=== PATIENT | female | born 1955 | race African-American/Black ===

== ENCOUNTER 2016-11-12 08:07 | Outpatient (CLI) | payer OTHER ==
[2016-11-12 08:27] LABS: ALT (SGPT) 21 U/L (8-55); AST (SGOT) 28 U/L (5-34); Albumin 4.1 g/dL (3.5-5.0); Alkaline Phosphatase 83 U/L (40-150); Anion Gap 18 mmol/L (10-20); BUN (Urea Nitrogen) 15 mg/dL (9.8-20.1); Bilirubin, Total 0.8 mg/dL (0.2-1.2); Calc. Creatinine Clearance 0 mL/min (70-130); Calcium 9.6 mg/dL (7.8-10.44); Carbon Dioxide 28 mmol/L (22-29); Cardiac Risk 2.4 (Less than 4.5); Chloride 96 mmol/L (98-107); Cholesterol 137 mg/dl (< 200 Desired); Estimated GFR-MDRD 72; Globulin 3.7 g/dL (2.4-3.5); HDL Cholesterol 57 mg/dL (>60 Neg Risk); LDL Cholesterol, Calculated 55 mg/dL; Potassium 3.6 mmol/L (3.5-5.1); Protein, Total 7.8 g/dL (6.0-8.3); Sodium 138 mmol/L (136-145); Triglycerides 126 mg/dL (Less than 150)
[2016-11-12 08:29] LABS: Glucose 228 mg/dL (70-105)
[2016-11-12 08:30] LABS: Hemoglobin A1c 10.5 % (4.0-6.0)
[2016-11-12 08:31] LABS: Thyroid Stimulating Hormone 2.0628 uIU/mL (0.35-4.94); Vitamin D, 25 Hydroxy 9.9 ng/ml (> 30.0)
[2016-11-12 08:34] LABS: White Blood Cell (WBC) Count 6.6 thou/uL (4.8-10.8)
[2016-11-12 08:35] LABS: Hemoglobin 13.9 g/dL (12.0-16.0)
[2016-11-12 08:36] LABS: #Eosinphils 0.4 thou/uL (0.0-0.7); #Lymphocytes 2.5 thou/uL (1.20-3.40); #Monocytes 0.2 thou/uL (0.11-0.59); #Neutrophils 3.4 thou/uL (1.40-6.50); %Basophils 1.2 % (0.0-1.0); %Eosinophils 5.8 % (0.0-10.0); %Lymphocytes 37.7 % (21.0-51.0); %Monocytes 3.8 % (0.0-10.0); %Neutrophils 54.5 % (42.0-75.0); Mean Corpuscular HGB CONC 31.8 g/dL (32.0-36.0); Mean Corpuscular Hemoglobin 25.3 pg (27.0-31.0); Mean Corpuscular Volume 79.5 fL (81.0-99.0); Mean Platelet Volume 7.5 fL (7.4-10.4); Platelet Count 293 thou/uL (130-400); RBC Distribution Width 13.5 % (11.5-14.5)
[2016-11-12 08:37] LABS: #Basophils 0.1 thou/uL (0.0-0.2)
[2016-11-12 08:52] LABS: Blood, Urine Negative (Negative); Clarity Clear (Clear); Glucose, Urine (Dipstick) Negative (Negative); Leukocyte Negative (Negative); Nitrite Negative (Negative); Protein, Urine (Dipstick) 100 mg/dL (Neg-Trace); Urobilinogen 0.2 mg/dL (0.2-1.0)
[2016-11-12 08:58] LABS: Bilirubin Negative (Negative)
[2016-11-12 09:00] LABS: Icto Negative (Negative)
[2016-11-12 09:15] LABS: Bacteria/HPF Rare-Few HPF (None Seen); RBC/HPF 0-3 HPF (0-3); Squamous Epithelial 0-3 HPF (0-3); WBC/HPF 0-3 HPF (0-3)
[2016-11-12 18:30] LABS: Creatinine, Urine 180.36 mg/dL (47-110); Microalbumin Urine 10.6 mg/dL (0.5-50.0); Microalbumin/Creat Ratio 58.8 mg/g (Less than 30)
== END 2016-11-12 08:08 | disposition home or self-care (01) ==
LOC: NAV LAB 08:07
DX: Z13.220 Encounter for screening for lipoid disorders (principal); E11.65 Type 2 diabetes mellitus with hyperglycemia; Z01.419 Encounter for gynecological examination (general) (routine) without abnormal findings; Z13.29 Encounter for screening for other suspected endocrine disorder
CPT/HCPCS: 36415; 80053; 80061; 81003; 81015; 82043; 82306; 83036; 84443; 85025

== ENCOUNTER 2017-09-08 21:19 | Emergency (ER) | payer OTHER ==
[2017-09-08] MEDS ORDERED: Sodium Chloride 0.9% 1,000 ML ONE ×2 (21:52→22:13)
[2017-09-08] MEDS ORDERED: Insulin Regular 300 UNITS/3 ML VIAL ONE (21:52)
[2017-09-08 21:58] LABS: #Basophils 0.1 thou/uL (0.0-0.2); #Eosinphils 0.3 thou/uL (0.0-0.7); #Lymphocytes 2.3 thou/uL (1.20-3.40); #Monocytes 0.4 thou/uL (0.11-0.59); #Neutrophils 2.5 thou/uL (1.40-6.50); %Eosinophils 5.4 % (0.0-10.0); %Lymphocytes 41.4 % (21.0-51.0); %Monocytes 6.9 % (0.0-10.0); %Neutrophils 45.3 % (42.0-75.0); Bilirubin Negative (Negative); Blood, Urine Trace (Negative); Clarity Clear (Clear); Glucose, Urine (Dipstick) 500 mg/dL (Negative); Hemoglobin 12.5 g/dL (12.0-16.0); Leukocyte Negative (Negative); Mean Corpuscular HGB CONC 30.1 g/dL (32.0-36.0); Mean Corpuscular Hemoglobin 24.1 pg (27.0-31.0); Mean Corpuscular Volume 79.8 fl (81.0-99.0); Mean Platelet Volume 8.9 fL (7.4-10.4); Nitrite Negative (Negative); Platelet Count 245 thou/uL (130-400); Protein, Urine (Dipstick) Negative (Neg-Trace); RBC Distribution Width 13.8 % (11.5-14.5); Urobilinogen 0.2 mg/dL (0.2-1.0); White Blood Cell (WBC) Count 5.5 thou/uL (4.8-10.8)
[2017-09-08 21:59] LABS: ALT (SGPT) 21 U/L (8-55); AST (SGOT) 19 U/L (5-34); Albumin 3.8 g/dL (3.5-5.0); Alkaline Phosphatase 109 U/L (40-150); Anion Gap 21 mmol/L (10-20); BUN (Urea Nitrogen) 28 mg/dL (9.8-20.1); Bilirubin, Total 0.4 mg/dL (0.2-1.2); Calc. Creatinine Clearance 0 mL/min (70-130); Calcium 8.9 mg/dL (7.8-10.44); Carbon Dioxide 21 mmol/L (22-29); Chloride 92 mmol/L (98-107); Estimated GFR-MDRD 29; Globulin 3.9 g/dL (2.4-3.5); Potassium 4.1 mmol/L (3.5-5.1); Protein, Total 7.7 g/dL (6.0-8.3); Sodium 130 mmol/L (136-145)
[2017-09-08 22:02] LABS: CKMB 1.3 ng/mL (0-6.6); Troponin I Less than 0.010 ng/mL (< 0.028)
[2017-09-08 22:05] LABS: Specific Gravity, Urine 1.023 (1.002-1.036)
[2017-09-08 22:08] LABS: Bacteria/HPF None Seen HPF (None Seen); RBC/HPF 0-3 HPF (0-3); Squamous Epithelial 0-3 HPF (0-3); WBC/HPF 0-3 HPF (0-3)
[2017-09-08 22:19] LABS: PLT Morphology Comment Appears Adequate; RBC Morphology Normal
[2017-09-08 22:25] LABS: Glucose 772 mg/dL (70-105)
[2017-09-08 23:28] LABS: Anion Gap 16 mmol/L (10-20); BUN (Urea Nitrogen) 27 mg/dL (9.8-20.1); Calc. Creatinine Clearance 0 mL/min (70-130); Calcium 8.8 mg/dL (7.8-10.44); Carbon Dioxide 27 mmol/L (22-29); Chloride 95 mmol/L (98-107); Estimated GFR-MDRD 30; Potassium 4.3 mmol/L (3.5-5.1); Sodium 134 mmol/L (136-145)
[2017-09-08 23:29] LABS: Glucose 733 mg/dL (70-105)
== END 2017-09-09 00:25 | disposition home or self-care (01) ==
LOC: NAV ERS 21:19
DX: E11.65 Type 2 diabetes mellitus with hyperglycemia (principal); N28.9 Disorder of kidney and ureter, unspecified; E11.9 Type 2 diabetes mellitus without complications; E78.5 Hyperlipidemia, unspecified; I10 Essential (primary) hypertension; Z79.899 Other long term (current) drug therapy
CPT/HCPCS: 36416; 80053; 81003; 81015; 82010; 82553; 84484; 85025; 93005; 96361; 96374; 96376; J1815; J7050

== ENCOUNTER 2018-06-05 12:42 | Emergency (ER) | payer OTHER ==
[2018-06-05] MEDS ORDERED: Sodium Chloride 0.9% 1,000 ML ONE (13:03)
[2018-06-05 13:09] LABS: #Basophils 0.1 thou/uL (0.0-0.2); #Eosinphils 0.3 thou/uL (0.0-0.7); #Lymphocytes 2.9 thou/uL (1.20-3.40); #Monocytes 0.5 thou/uL (0.11-0.59); #Neutrophils 2.8 thou/uL (1.40-6.50); %Eosinophils 4.3 % (0.0-10.0); %Lymphocytes 44.2 % (21.0-51.0); %Neutrophils 43.6 % (42.0-75.0); Hemoglobin 13.7 g/dL (12.0-16.0); Mean Corpuscular HGB CONC 32.3 g/dL (32.0-36.0); Mean Corpuscular Hemoglobin 25.5 pg (27.0-31.0); Mean Corpuscular Volume 78.9 fL (78.0-98.0); Mean Platelet Volume 7.8 fL (7.4-10.4); Platelet Count 300 thou/uL (130-400); RBC Distribution Width 13.2 % (11.5-14.5); Red Blood Cell (RBC) Count 5.37 mill/uL (4.20-5.40); White Blood Cell (WBC) Count 6.5 thou/uL (4.8-10.8)
[2018-06-05 13:20] LABS: Anion Gap 16 mmol/L (10-20); BUN (Urea Nitrogen) 32 mg/dL (9.8-20.1); Calc. Creatinine Clearance 0 mL/min (70-130); Calcium 10.1 mg/dL (7.8-10.44); Carbon Dioxide 24 mmol/L (23-31); Chloride 98 mmol/L (98-107); Estimated GFR-MDRD 37; Glucose 324 mg/dL (80-115); Potassium 3.9 mmol/L (3.5-5.1); Sodium 134 mmol/L (136-145)
== END 2018-06-05 13:52 | disposition short-term general hospital (02) ==
LOC: NAV ERS 12:42
DX: K22.2 Esophageal obstruction (principal); E11.65 Type 2 diabetes mellitus with hyperglycemia; I10 Essential (primary) hypertension; M19.90 Unspecified osteoarthritis, unspecified site; Z79.899 Other long term (current) drug therapy; Z79.51 Long term (current) use of inhaled steroids
CPT/HCPCS: 36415; 36416; 80048; 85025; 96361; 96374; J1610; J7050

== ENCOUNTER 2019-07-31 11:42 | Emergency (ER) | payer OTHER ==
--- NOTE | 2019-07-31 12:41 | RAD ---
LEFT KNEE FOUR VIEWS: 07/31/2019 HISTORY: Fall. Twisting injury. COMPARISON: None. FINDINGS: There is moderate/severe medial and lateral compartment narrowing with subchondral sclerosis and oste ophyte formation. There is a small knee joint effusion. There is moderate-severe patellofemoral joint space narrowing, subchondral sclerosis and osteophyte formation. No displaced fracture or dislocatio n. IMPRESSION: 1. Severe multicompartment degenerative joint disease. 2. Small knee joint effusion. 3. No acute fracture or evidence of dislocation is appreciated. POS: [facility]
== END 2019-07-31 12:42 | disposition home or self-care (01) ==
LOC: NAV ERS 11:42
DX: M25.562 Pain in left knee (principal); E11.9 Type 2 diabetes mellitus without complications; I10 Essential (primary) hypertension; Z79.899 Other long term (current) drug therapy

== ENCOUNTER 2020-01-04 09:24 | Outpatient (CLI) | payer OTHER ==
[2020-01-04 09:31] LABS: #Basophils 0.1 thou/uL (0.0-0.2); #Eosinphils 0.3 thou/uL (0.0-0.7); #Monocytes 0.4 thou/uL (0.11-0.59); #Neutrophils 3.4 thou/uL (1.40-6.50); %Basophils 1.1 % (0.0-1.0); %Lymphocytes 32.7 % (21.0-51.0); %Monocytes 5.8 % (0.0-10.0); %Neutrophils 55.3 % (42.0-75.0); Hemoglobin 13.3 g/dL (12.0-16.0); Mean Corpuscular HGB CONC 30.2 g/dL (32.0-36.0); Mean Corpuscular Hemoglobin 25.1 pg (27.0-31.0); Mean Corpuscular Volume 83.1 fL (78.0-98.0); Mean Platelet Volume 8.4 fL (7.4-10.4); Platelet Count 299 thou/uL (130-400); RBC Distribution Width 14.1 % (11.5-14.5); Red Blood Cell (RBC) Count 5.29 mill/uL (4.20-5.40); White Blood Cell (WBC) Count 6.1 thou/uL (4.8-10.8)
[2020-01-04 09:47] LABS: ALT (SGPT) 12 U/L (8-55); AST (SGOT) 16 U/L (5-34); Albumin 3.3 g/dL (3.4-4.8); Alkaline Phosphatase 72 U/L (40-110); Anion Gap 18 mmol/L (10-20); BUN (Urea Nitrogen) 25 mg/dL (9.8-20.1); Bilirubin, Total 0.4 mg/dL (0.2-1.2); Calc. Creatinine Clearance 0 mL/min (70-130); Calcium 8.9 mg/dL (7.8-10.44); Carbon Dioxide 17 mmol/L (23-31); Cardiac Risk 3.7 (Less than 4.5); Chloride 109 mmol/L (98-107); Cholesterol 194 mg/dl (< 200 Desired); Estimated GFR-MDRD 38; Globulin 3.3 g/dL (2.4-3.5); Glucose 167 mg/dL (80-115); HDL Cholesterol 53 mg/dL (>60 Neg Risk); LDL Cholesterol, Calculated 114 mg/dL; Potassium 3.8 mmol/L (3.5-5.1); Protein, Total 6.6 g/dL (6.0-8.3); Sodium 140 mmol/L (136-145); Triglycerides 134 mg/dL (Less than 150)
[2020-01-04 11:36] LABS: Hemoglobin A1c 6.7 % (4.0-6.0)
[2020-01-04 12:03] LABS: Creatinine, Urine 148.44 mg/dL (47-110); Microalbumin Urine 3.9 mg/dL (0.5-50.0); Microalbumin/Creat Ratio 26.3 mg/g (Less than 30)
== END 2020-01-04 09:25 | disposition home or self-care (01) ==
LOC: NAV LAB 09:24
PROVIDERS: ATTEND Family Medicine
DX: Z51.81 Encounter for therapeutic drug level monitoring (principal); E11.65 Type 2 diabetes mellitus with hyperglycemia; E78.2 Mixed hyperlipidemia; J30.2 Other seasonal allergic rhinitis; E66.01 Morbid (severe) obesity due to excess calories; I12.9 Hypertensive chronic kidney disease with stage 1 through stage 4 chronic kidney disease, or unspecified chronic kidney disease; E11.22 Type 2 diabetes mellitus with diabetic chronic kidney disease; N18.3 Chronic kidney disease, stage 3 (moderate); Z79.899 Other long term (current) drug therapy
CPT/HCPCS: 80053; 80061; 82043; 83036; 84443; 85025

== ENCOUNTER 2020-04-25 15:58 | Outpatient (CLI) | payer OTHER ==
--- NOTE | 2020-04-25 16:16 | RAD ---
EXAM: Two views chest PROVIDED CLINICAL HISTORY: Cough. COMPARISON: 05/30/2019 FINDINGS: Cardiac silhouette and pulmonary vasculature are within normal limits. The lungs are clear. The osse ous structures have a normal appearance. Vascular calcifications are seen in thoracic aorta. No interval change. IMPRESSION: No acute cardiopulmonary process.
== END 2020-04-25 15:59 | disposition home or self-care (01) ==
LOC: NAV LAB 15:58
PROVIDERS: ATTEND Family Medicine
DX: R05 Cough (principal)
CPT/HCPCS: 71046

== ENCOUNTER 2020-06-30 12:25 | Outpatient (CLI) | payer OTHER ==
[2020-06-30 12:56] LABS: CRP (Inflammatory) 6.27 mg/dL (= or < 0.5); Uric Acid 9.3 mg/dL (2.6-6.0)
== END 2020-06-30 12:26 | disposition home or self-care (01) ==
LOC: NAV RAD 12:25
PROVIDERS: ATTEND Family Medicine
DX: M10.9 Gout, unspecified (principal)
CPT/HCPCS: 36415; 84550; 86140

== ENCOUNTER 2023-12-24 07:21 | Inpatient (IN) | payer BC, MEDICARE, SELFPAY ==
[2023-12-24 08:01] LABS: #Basophils 0.1 thou/uL (0.0-0.2); #Neutrophils 14.1 thou/uL (1.40-6.50); %Basophils 0.5 % (0.0-1.0); %Eosinophils 0.1 % (0.0-10.0); %Lymphocytes 6.3 % (21.0-51.0); %Neutrophils 87.2 % (42.0-75.0); Hematocrit 36.6 % (36.0-47.0); Hemoglobin 11.3 g/dL (12.0-16.0); Mean Corpuscular HGB CONC 30.8 g/dL (32.0-36.0); Mean Corpuscular Hemoglobin 23.5 pg (27.0-31.0); Mean Corpuscular Volume 76.4 fl (78.0-98.0); Mean Platelet Volume 7.4 fL (7.4-10.4); Platelet Count 244 10x3/uL (130-400); RBC Distribution Width 13.6 % (11.5-14.5); Red Blood Cell (RBC) Count 4.79 mill/uL (4.20-5.40); White Blood Cell (WBC) Count 16.2 10x3/uL (4.8-10.8)
[2023-12-24 08:08] LABS: ALT (SGPT) 9 U/L (8-55); AST (SGOT) 11 U/L (5-34); Albumin 2.9 g/dL (3.4-4.8); Alkaline Phosphatase 82 U/L (40-110); Anion Gap 18 mmol/L (10-20); BUN (Urea Nitrogen) 39 mg/dL (9.8-20.1); Bilirubin, Total 0.9 mg/dL (0.2-1.2); Calc. Creatinine Clearance 0 mL/min (70-130); Calcium 9.6 mg/dL (7.8-10.44); Carbon Dioxide 20 mmol/L (23-31); Chloride 97 mmol/L (98-107); Estimated GFR 23; Globulin 5.1 g/dL (2.4-3.5); Glucose 393 mg/dL (80-115); Potassium 4.9 mmol/L (3.5-5.1); Sodium 130 mmol/L (136-145)
[2023-12-24 08:32] LABS: Bilirubin Negative (Negative); Blood, Urine Small (Negative); Clarity Clear (Clear); Glucose, Urine (Dipstick) 250 mg/dL (Negative); Ketone, Urine Negative (Negative); Leukocyte Negative (Negative); Nitrite Negative (Negative); Protein, Urine (Dipstick) > or equal to 300 mg/dL (Neg-Trace); Urobilinogen 0.2 mg/dL (Less than 2)
[2023-12-24 08:39] LABS: Bacteria/HPF Rare-Few HPF (None Seen); CAUTI Indications for Culture Fever or rigors; RBC/HPF 0-3 HPF (0-3); Squamous Epithelial 0-3 HPF (0-3); WBC/HPF None Seen HPF (0-3)
[2023-12-24 08:40] LABS: SARS-CoV-2 NAA Rapid Test Not Detected (NotDetected)
[2023-12-24 08:41] LABS: Urine Culture Reflex No No
[2023-12-24] MEDS ORDERED: HumaLOG 300 UNITS/3 ML VIAL SC PRN ×2 (10:03)
[2023-12-24] MEDS ORDERED: Glucagon 1 MG/ML KIT IM PRN (10:03)
[2023-12-24] MEDS ORDERED: Dextrose 50% Abboject 50 ML SYRINGE SLOW IVP PRN (10:03)
[2023-12-24] MEDS ORDERED: Ondansetron ODT 4 MG TAB PO PRN (10:03)
[2023-12-24] MEDS ORDERED: Ipratropium/Albuterol 3 ML NEB NEB PRN (10:24)
[2023-12-24 11:39] VITALS: BMI 51.6
[2023-12-24] MEDS: Insulin Lispro 100 UNIT/ML 10 ML VIAL SC PRN ×2 (12:42→20:43)
[2023-12-24] MEDS: Acetaminophen 500 MG TAB ONE (13:05)
[2023-12-24] MEDS: cefTRIAXone (ROCEPHIN) 1 GM VIAL ONE (13:06)
[2023-12-24] MEDS: Sodium Chloride 0.9% 100 ML ONE (13:06)
[2023-12-24] MEDS: Sodium Chloride 0.9% 1,000 ML ONE ×2 (13:06)
[2023-12-24] MEDS: Azithromycin 500 MG VIAL ONE (13:07)
[2023-12-24] MEDS: Sodium Chloride 0.9% 250 ML 250 ML ONE (13:07)
[2023-12-24] MEDS: Sodium Chloride 0.9% 1,000 ML IV SCH ×4 (14:31→19:41)
[2023-12-24] MEDS: Ipratropium/Albuterol 3 ML NEB NEB SCH (14:33)
[2023-12-24] MEDS: Heparin 5,000 UNITS/ML VIAL SC SCH (14:34)
[2023-12-24] MEDS: Acetaminophen 325 MG TAB PO PRN (17:11)
[2023-12-24] MEDS: HumuLIN 70/30 100 Unit/ml 10 ml Vial SC SCH (19:59)
[2023-12-24] MEDS: Atorvastatin Calcium 40 MG TAB PO SCH (20:43)
[2023-12-24] MEDS: Famotidine 20 MG TAB PO SCH (20:44)
[2023-12-25 05:54] LABS: #Basophils 0.1 thou/uL (0.0-0.2); #Eosinphils 0.1 thou/uL (0.0-0.7); #Lymphocytes 1.8 thou/uL (1.20-3.40); #Monocytes 0.8 thou/uL (0.11-0.59); #Neutrophils 9.7 thou/uL (1.40-6.50); %Basophils 0.4 % (0.0-1.0); %Eosinophils 1.2 % (0.0-10.0); %Lymphocytes 14.4 % (21.0-51.0); %Monocytes 6.4 % (0.0-10.0); %Neutrophils 77.6 % (42.0-75.0); Hematocrit 29.5 % (36.0-47.0); Hemoglobin 9.1 g/dL (12.0-16.0); Mean Corpuscular Hemoglobin 23.6 pg (27.0-31.0); Mean Platelet Volume 7.2 fL (7.4-10.4); Platelet Count 211 10x3/uL (130-400); RBC Distribution Width 13.7 % (11.5-14.5); Red Blood Cell (RBC) Count 3.88 mill/uL (4.20-5.40); White Blood Cell (WBC) Count 12.5 10x3/uL (4.8-10.8)
[2023-12-25 06:03] LABS: ALT (SGPT) 8 U/L (8-55); AST (SGOT) 13 U/L (5-34); Albumin 2.3 g/dL (3.4-4.8); Alkaline Phosphatase 61 U/L (40-110); Anion Gap 13 mmol/L (10-20); BUN (Urea Nitrogen) 30 mg/dL (9.8-20.1); Bilirubin, Total 0.3 mg/dL (0.2-1.2); Calc. Creatinine Clearance 75 mL/min (70-130); Calcium 8.4 mg/dL (7.8-10.44); Carbon Dioxide 19 mmol/L (23-31); Chloride 108 mmol/L (98-107); Estimated GFR 35; Globulin 4.2 g/dL (2.4-3.5); Glucose 180 mg/dL (80-115); Potassium 4.4 mmol/L (3.5-5.1); Protein, Total 6.5 g/dL (5.8-8.1); Sodium 136 mmol/L (136-145)
[2023-12-25] MEDS: Famotidine 20 MG TAB PO SCH (08:30)
[2023-12-25] MEDS: Amlodipine 5 MG TAB PO SCH (08:31)
[2023-12-25] MEDS: Azithromycin 500 MG in Sodium Chloride 0.9% 250 ML 250 ML IVPB SCH (08:32)
[2023-12-25] MEDS ORDERED: Atenolol 25 MG TAB PO SCH (09:00)
[2023-12-25] MEDS ORDERED: ATENOLOL 50 MG PO SCH (09:00)
[2023-12-25] MEDS ORDERED: Atorvastatin Calcium 10 MG TAB PO SCH (09:00)
[2023-12-25] MEDS ORDERED: ATORVASTATIN PO SCH (09:00)
[2023-12-25] MEDS ORDERED: AMLODIPINE PO SCH (09:00)
[2023-12-25] MEDS ORDERED: [UNRECOGNIZED DRUG - OTHER] PO SCH (09:00)
[2023-12-25] MEDS: Budesonide 0.5 MG/2 ML NEB INH SCH ×3 (09:18→20:30)
[2023-12-25] MEDS: cefTRIAXone\\ROCEPHIN 1 GM in Sodium Chloride 0.9% 100 ML IVPB SCH (09:39)
[2023-12-25] MEDS: Lisinopril 10 MG TAB PO SCH (20:28)
[2023-12-26 06:10] LABS: #Basophils 0.1 thou/uL (0.0-0.2); #Eosinphils 0.2 thou/uL (0.0-0.7); #Lymphocytes 2.4 thou/uL (1.20-3.40); #Monocytes 0.7 thou/uL (0.11-0.59); #Neutrophils 6.2 thou/uL (1.40-6.50); %Basophils 0.6 % (0.0-1.0); %Eosinophils 2.4 % (0.0-10.0); %Lymphocytes 24.7 % (21.0-51.0); %Monocytes 7.5 % (0.0-10.0); %Neutrophils 64.9 % (42.0-75.0); Hematocrit 30.6 % (36.0-47.0); Hemoglobin 9.3 g/dL (12.0-16.0); Mean Corpuscular HGB CONC 30.6 g/dL (32.0-36.0); Mean Corpuscular Hemoglobin 23.4 pg (27.0-31.0); Mean Corpuscular Volume 76.4 fl (78.0-98.0); Mean Platelet Volume 7.5 fL (7.4-10.4); Platelet Count 215 10x3/uL (130-400); RBC Distribution Width 13.8 % (11.5-14.5); White Blood Cell (WBC) Count 9.5 10x3/uL (4.8-10.8)
[2023-12-26 06:21] LABS: Anion Gap 12 mmol/L (10-20); BUN (Urea Nitrogen) 19 mg/dL (9.8-20.1); Calc. Creatinine Clearance 89 mL/min (70-130); Calcium 8.5 mg/dL (7.8-10.44); Carbon Dioxide 21 mmol/L (23-31); Chloride 111 mmol/L (98-107); Estimated GFR 42; Glucose 111 mg/dL (80-115); Sodium 140 mmol/L (136-145)
[2023-12-26] MEDS: Enoxaparin 30 MG (0.3 mL) SYRINGE SC SCH (08:28)
[2023-12-26 11:33] LABS: Iron 29 ug/dL (50-170); Iron Binding Capacity, Total 269 mcg/dL (265-497)
[2023-12-26] MEDS: Ferrous Sulfate 325 MG TAB PO SCH (13:01)
[2023-12-27 05:18] LABS: #Basophils 0.1 thou/uL (0.0-0.2); #Eosinphils 0.2 thou/uL (0.0-0.7); #Lymphocytes 1.6 thou/uL (1.20-3.40); #Monocytes 0.7 thou/uL (0.11-0.59); #Neutrophils 6.3 thou/uL (1.40-6.50); %Basophils 0.9 % (0.0-1.0); %Eosinophils 2.5 % (0.0-10.0); %Lymphocytes 18.1 % (21.0-51.0); %Monocytes 8.1 % (0.0-10.0); %Neutrophils 70.4 % (42.0-75.0); Hematocrit 32.3 % (36.0-47.0); Hemoglobin 10.3 g/dL (12.0-16.0); Mean Corpuscular HGB CONC 31.9 g/dL (32.0-36.0); Mean Corpuscular Hemoglobin 24.1 pg (27.0-31.0); Mean Corpuscular Volume 75.6 fl (78.0-98.0); Mean Platelet Volume 7.6 fL (7.4-10.4); Platelet Count 247 10x3/uL (130-400); RBC Distribution Width 13.6 % (11.5-14.5); Red Blood Cell (RBC) Count 4.27 mill/uL (4.20-5.40); White Blood Cell (WBC) Count 8.9 10x3/uL (4.8-10.8)
[2023-12-27 05:33] LABS: Anion Gap 15 mmol/L (10-20); BUN (Urea Nitrogen) 15 mg/dL (9.8-20.1); Calc. Creatinine Clearance 98 mL/min (70-130); Calcium 9.2 mg/dL (7.8-10.44); Carbon Dioxide 22 mmol/L (23-31); Chloride 108 mmol/L (98-107); Estimated GFR 48; Glucose 66 mg/dL (80-115); Potassium 4.1 mmol/L (3.5-5.1); Sodium 141 mmol/L (136-145)
[2023-12-27 07:05] VITALS: BP 128/67; TEMP 98.7
[2023-12-27] MEDS: Amoxicillin/Potassium Clav 875 MG TAB PO SCH (08:21)
[2023-12-28] MEDS ORDERED: Ferrous Sulfate 325 MG TAB PO SCH (09:00)
== END 2023-12-27 10:10 | disposition home or self-care (01) | DRG 871 ==
LOC: NAV ERS 07:21 → NAV ACUTE 09:45
PROVIDERS: ADMIT Student in an Organized Health Care Education/Training Program; ATTEND Student in an Organized Health Care Education/Training Program
DX: A41.9 Sepsis, unspecified organism (principal); J18.9 Pneumonia, unspecified organism; N17.9 Acute kidney failure, unspecified; E78.5 Hyperlipidemia, unspecified; J30.2 Other seasonal allergic rhinitis; I12.9 Hypertensive chronic kidney disease with stage 1 through stage 4 chronic kidney disease, or unspecified chronic kidney disease; D50.9 Iron deficiency anemia, unspecified; E11.22 Type 2 diabetes mellitus with diabetic chronic kidney disease; N18.9 Chronic kidney disease, unspecified; M10.9 Gout, unspecified; Z79.4 Long term (current) use of insulin; Z90.710 Acquired absence of both cervix and uterus; Z98.51 Tubal ligation status
CPT/HCPCS: 36415; 36416; 71046; 80048; 80053; 81001; 82728; 83540; 83550; 83605; 84145; 85025; 87040; 93005; 94640; 96365; 96374; J0456; J0696; J1644; J1650; J1815; J7030; J7050; J7620; J7626; U0002

== ENCOUNTER 2023-12-31 05:44 | Emergency (ER) | payer MEDICARE | END 2023-12-31 07:15 | disposition home or self-care (01) | LOC: NAV ERS 05:44 | DX: R04.2 Hemoptysis (principal); M10.9 Gout, unspecified | CPT/HCPCS: 71046 ==

== ENCOUNTER 2024-04-27 16:29 | Emergency (ER) | payer MEDICARE, SELFPAY ==
[2024-04-27 17:22] LABS: Hematocrit 37.7 % (36.0-47.0); Hemoglobin 11.6 g/dL (12.0-16.0); Mean Corpuscular HGB CONC 30.8 g/dL (32.0-36.0); Mean Corpuscular Hemoglobin 23.3 pg (27.0-31.0); Mean Corpuscular Volume 75.8 fl (78.0-98.0); Mean Platelet Volume 8.7 fL (7.4-10.4); Platelet Count 357 10x3/uL (130-400); RBC Distribution Width 13.3 % (11.5-14.5); Red Blood Cell (RBC) Count 4.97 mill/uL (4.20-5.40); White Blood Cell (WBC) Count 14.5 10x3/uL (4.8-10.8)
[2024-04-27] MEDS ORDERED: Ipratropium/Albuterol 3 ML NEB ONE (17:23)
[2024-04-27] MEDS ORDERED: Acetaminophen 500 MG TAB ONE (17:23)
[2024-04-27 17:33] LABS: ALT (SGPT) 9 U/L (8-55); AST (SGOT) 9 U/L (5-34); Albumin 2.9 g/dL (3.4-4.8); Alkaline Phosphatase 85 U/L (40-110); Anion Gap 19 mmol/L (10-20); BUN (Urea Nitrogen) 36 mg/dL (9.8-20.1); Bilirubin, Total 0.6 mg/dL (0.2-1.2); Calc. Creatinine Clearance 0 mL/min (70-130); Carbon Dioxide 19 mmol/L (23-31); Chloride 102 mmol/L (98-107); Estimated GFR 25; Globulin 4.6 g/dL (2.4-3.5); Glucose 280 mg/dL (80-115); Potassium 5.3 mmol/L (3.5-5.1); Protein, Total 7.5 g/dL (5.8-8.1); Sodium 135 mmol/L (136-145)
[2024-04-27] MEDS ORDERED: Sodium Chloride 0.9% 1,000 ML ONE ×2 (17:36→18:41)
[2024-04-27 17:39] LABS: Troponin I 0.012 ng/mL (< 0.028)
[2024-04-27 18:14] LABS: MDiff Complete? YES
[2024-04-27 18:18] LABS: Band 2 % (5-11); Eosinophils 1 % (0-10); Lymphocytes 9 % (21-51); Monocytes 6 % (0-10); Myelocyte 1 % (0-0); Neutrophil 81 % (42-75)
[2024-04-27] MEDS ORDERED: cefTRIAXone (ROCEPHIN) 2 GM VIAL ONE (18:18)
[2024-04-27] MEDS ORDERED: Sodium Chloride 0.9% 100 ML ONE (18:18)
[2024-04-27 18:19] LABS: Anisocytosis SLIGHT = 6-15 cells (100X) (0-5/hpf); Hypochromia SLIGHT = 6-15 cells (100X) (0-5/hpf); Poikilocytosis SLIGHT = 6-15 cells (100X) (0-5/hpf); Toxic Granulation MODERATE
[2024-04-27 18:22] LABS: Platelet Adequacy Comment Appears Adequate
[2024-04-27] MEDS ORDERED: Ondansetron PF 4 MG/2 ML Vial ONE (18:41)
[2024-04-27 18:46] LABS: Bilirubin Negative (Negative); Blood, Urine Negative (Negative); Clarity Clear (Clear); Glucose, Urine (Dipstick) Negative (Negative); Ketone, Urine Trace mg/dL (Negative); Leukocyte Negative (Negative); Nitrite Negative (Negative); Protein, Urine (Dipstick) > or equal to 300 mg/dL (Neg-Trace); Urobilinogen 0.2 mg/dL (Less than 2)
[2024-04-27] MEDS ORDERED: Sodium Chloride 0.9% 250 ML 250 ML ONE (19:07)
[2024-04-27] MEDS ORDERED: Azithromycin 500 MG VIAL ONE (19:07)
[2024-04-27 19:14] LABS: Bacteria/HPF 3+ HPF (None Seen); CAUTI Indications for Culture Fever or rigors; Renal Epithelial 0-3 HPF (None Seen); Transitional Epithelial 0-3 HPF (None Seen); Urine Culture Reflex No No
[2024-04-27 19:16] LABS: Epithelial Cast 0-3 LPF (None Seen)
== END 2024-04-27 19:45 | disposition short-term general hospital (02) ==
LOC: NAV ERS 16:29
DX: J18.9 Pneumonia, unspecified organism (principal); A41.9 Sepsis, unspecified organism; N28.9 Disorder of kidney and ureter, unspecified; E11.9 Type 2 diabetes mellitus without complications; I10 Essential (primary) hypertension; Z79.899 Other long term (current) drug therapy; Z79.4 Long term (current) use of insulin
CPT/HCPCS: 71045; 80053; 81001; 83605; 84484; 85025; 85379; 87040; 87070; 87205; 87428; 93005; 94640; 94760; J0456; J0696; J2405; J7030; J7050; 36415; 96361; 96365; 96375; J7620